=== PATIENT | female | born 1970 | race Caucasian/White ===

== ENCOUNTER → 2021-03-11 | Outpatient (CLI) | payer OTHER ==
[~2021-03-11] MED LIST: ARNICA120 ML PO; ASPIRIN325 PO; COLACE 100 MG100 MG PO; HYDROCODONE-AP1 EAC6 PO; HYZAAR 50-12.51 TAB PO; LEVOTHYROXINE 0.1 MG PO; LIPITOR 20 MG T20 M1 PO; MOBIC15 MG PO; OMEGA-31000 M1 PO; OXYCODONE HCL 55 MG PO; PRILOSEC 20 MG20 MG PO; PROBIOTIC1 EAC1 PO; XARELTO10 MG PO; ZOLOFT25 MG PO
== END | disposition home or self-care (01) ==
LOC: M.RAD 03-07 13:00
PROVIDERS: ATTEND Orthopaedic Surgery
DX: M25.551 Pain in right hip (principal); M16.11 Unilateral primary osteoarthritis, right hip; Z79.899 Other long term (current) drug therapy; Z79.82 Long term (current) use of aspirin